=== PATIENT | female | born 1965 | race Caucasian/White ===

== ENCOUNTER 2020-07-20 08:45 | Outpatient (REF) | payer OTHER, SELFPAY ==
--- NOTE | ~2020-07-20 | XR_ITS ---
EXAMINATION: XR CHEST CLINICAL INFORMATION: Covid positive COMPARISON: None TECHNIQUE: 2 views of the chest were obtained. FINDINGS: No significant abnormality is noted involving the heart, lungs, mediastinum, bony thorax or soft tissues. XR/XR chest 2V IMPRESSION: Unremarkable examination.
== END 2020-07-20 08:46 | disposition home or self-care (01) ==
LOC: HO.HMGCX 08:45
PROVIDERS: PCP Internal Medicine; Visit Provider Internal Medicine
DX: U07.1 COVID-19 (principal)
CPT/HCPCS: 71046